=== PATIENT | male | born 1990 | race African-American/Black ===

== ENCOUNTER 2020-08-30 15:33 | Emergency (ER) | payer OTHER ==
[~2020-08-30] VITALS: Ht 175.3 cm; Wt 63.0 kg
[2020-08-30] MEDS ORDERED: OLANZAPINE 10 MG/VIAL IM ONE (16:15)
[2020-08-30] MEDS ORDERED: LORAZEPAM 2MG/ML CPJ IM ONE (16:15)
[2020-08-30 16:36] LABS: BASOPHILS % 0.1 % (0.0-2.0); HEMATOCRIT. 38.5 % (42.0-52.0); HEMOGLOBIN. 12.7 g/dL (14.0-18.0); LYMPHOCYTES % 25.3 % (20.0-50.0); MEAN CORPUSCULAR HEMOGLOBIN 27.2 pg (28.0-32.0); MEAN CORPUSCULAR VOLUME 82.2 fL (80.0-94.0); MEAN PLATELET VOLUME 9.2 fl (7.4-10.4); MONOCYTES % 7.3 % (2.0-8.0); NEUTROPHILS % 67.3 % (40.0-76.0); PLATELET 182 x1000/uL (130-400); RED BLOOD CELL COUNT 4.69 mill/uL (4.7-6.1); RED CELL DISTRIBUTION WIDTH 15.8 % (11.6-14.6)
[2020-08-30 16:42] LABS: CHLORIDE 101 mEq/L (98-107)
[2020-08-30 16:47] LABS: ETHANOL BLOOD < 10 mg/dL
[2020-08-30] MEDS ORDERED: POTASSIUM CHLORIDE 20MEQ TABLET SR PO ONE (17:30)
[2020-08-30 17:36] LABS: CLARITY URINE CLEAR (CLEAR); COLOR URINE YELLOW (YELLOW); KETONES URINE NEGATIVE (NEGATIVE); LEUKOCYTE ESTERASE URINE NEGATIVE (NEGATIVE); NITRITE URINE NEGATIVE (NEGATIVE); OCCULT BLOOD URINE NEGATIVE (NEGATIVE); PROTEIN URINE NEGATIVE (NEGATIVE); SPECIFIC GRAVITY URINE 1.008 (1.005-1.030); UROBILINOGEN URINE 0.2 E.U./dL (0.2-1.0)
[2020-08-30 18:00] LABS: *AMPHETAMINES SCREEN URINE PRESUMTIVE POSITIVE (NEGATIVE); *BARBITURATES SCREEN URINE NEGATIVE (NEGATIVE); *BENZODIAZEPINES SCREEN URINE NEGATIVE (NEGATIVE); *COCAINE SCREEN URINE PRESUMTIVE POSITIVE (NEGATIVE)
[2020-08-30 18:01] LABS: CANNABINOID URINE SCREEN PRESUMTIVE POSITIVE (NEGATIVE); METHADONE URINE SCREEN NEGATIVE (NEGATIVE); OPIATES URINE SCREEN NEGATIVE (NEGATIVE); PHENCYCLIDINE URINE SCREEN NEGATIVE (NEGATIVE)
[2020-08-31] VITALS: BP 142/87
== END 2020-08-31 00:46 | disposition home or self-care (01) ==
LOC: ER 15:33
DX: R46.2 Strange and inexplicable behavior (principal); I49.9 Cardiac arrhythmia, unspecified
CPT/HCPCS: 36415; 70450; 80053; 80305; 80307; 80320; 80329; 81003; 85025; 93005; 96372; 99285; J2060; J3490; Z7610; G0480

== ENCOUNTER 2021-03-06 20:47 | Emergency (ER) | payer OTHER ==
[~2021-03-06] VITALS: Ht 177.8 cm; Wt 68.0 kg
[2021-03-06] MEDS ORDERED: SODIUM CHLORIDE 0.9% 1,000 ML IV ONE (21:30)
[2021-03-06] MEDS ORDERED: LORAZEPAM 2MG/ML CPJ IV ONE (21:30)
[2021-03-06 21:49] LABS: BASOPHILS % 0.1 % (0.0-2.0); EOSINOPHILS % 0.5 % (0.0-5.0); HEMATOCRIT. 36.6 % (42.0-52.0); HEMOGLOBIN. 12.6 g/dL (14.0-18.0); LYMPHOCYTES % 25.6 % (20.0-50.0); MEAN CORPUSCULAR HEMOGLOBIN 29.3 pg (28.0-32.0); MEAN PLATELET VOLUME 9.8 fl (7.4-10.4); MONOCYTES % 8.2 % (2.0-8.0); NEUTROPHILS % 65.6 % (40.0-76.0); PLATELET 171 x1000/uL (130-400); RED BLOOD CELL COUNT 4.31 mill/uL (4.7-6.1); RED CELL DISTRIBUTION WIDTH 13.2 % (11.6-14.6)
[2021-03-06 21:52] LABS: CHLORIDE 105 mEq/L (98-107)
[2021-03-07 06:26] VITALS: BP 126/88
== END 2021-03-07 07:22 | disposition home or self-care (01) ==
LOC: ER 20:47
DX: F29 Unspecified psychosis not due to a substance or known physiological condition (principal); R00.0 Tachycardia, unspecified; B20 Human immunodeficiency virus [HIV] disease; T43.621A Poisoning by amphetamines, accidental (unintentional), initial encounter; Y92.9 Unspecified place or not applicable; Z88.0 Allergy status to penicillin
CPT/HCPCS: 36415; 71045; 80053; 83880; 84484; 85025; 93005; 96361; 96374; 99285; J2060; J7030; Z7610

== ENCOUNTER 2021-07-15 07:38 | Emergency (ER) | payer MEDICAID, OTHER ==
[~2021-07-15] VITALS: Ht 180.3 cm; Wt 78.0 kg
[2021-07-15 10:44] LABS: BASOPHILS % 0.2 % (0.0-2.0); EOSINOPHILS % 0.1 % (0.0-5.0); HEMOGLOBIN. 14.2 g/dL (14.0-18.0); LYMPHOCYTES % 14.8 % (20.0-50.0); MEAN CORPUSCULAR HEMOGLOBIN 29.5 pg (28.0-32.0); MEAN CORPUSCULAR VOLUME 87.4 fL (80.0-94.0); MEAN PLATELET VOLUME 10.1 fl (7.4-10.4); MONOCYTES % 8.4 % (2.0-8.0); NEUTROPHILS % 76.5 % (40.0-76.0); PLATELET 295 x1000/uL (130-400); RED BLOOD CELL COUNT 4.81 mill/uL (4.7-6.1); RED CELL DISTRIBUTION WIDTH 13.2 % (11.6-14.6)
[2021-07-15 10:51] LABS: CHLORIDE 107 mEq/L (98-107)
[2021-07-15 10:56] LABS: ETHANOL BLOOD < 10 mg/dL
[2021-07-15 15:58] LABS: CLARITY URINE CLOUDY (CLEAR); COLOR URINE YELLOW (YELLOW); KETONES URINE TRACE (NEGATIVE); LEUKOCYTE ESTERASE URINE NEGATIVE (NEGATIVE); NITRITE URINE NEGATIVE (NEGATIVE); OCCULT BLOOD URINE TRACE (NEGATIVE); PROTEIN URINE 2+ (NEGATIVE); SPECIFIC GRAVITY URINE 1.025 (1.005-1.030)
[2021-07-15 16:07] LABS: *AMPHETAMINES SCREEN URINE PRESUMTIVE POSITIVE (NEGATIVE); *BARBITURATES SCREEN URINE NEGATIVE (NEGATIVE); *BENZODIAZEPINES SCREEN URINE NEGATIVE (NEGATIVE); *COCAINE SCREEN URINE NEGATIVE (NEGATIVE); METHADONE URINE SCREEN NEGATIVE (NEGATIVE); OPIATES URINE SCREEN NEGATIVE (NEGATIVE)
[2021-07-15 16:08] LABS: CANNABINOID URINE SCREEN PRESUMTIVE POSITIVE (NEGATIVE); PHENCYCLIDINE URINE SCREEN NEGATIVE (NEGATIVE)
[2021-07-15] MEDS ORDERED: OLANZAPINE 5MG TABLET PO SCH (21:00)
[2021-07-16 04:00] VITALS: BP 136/78
== END 2021-07-16 05:10 | disposition home or self-care (01) ==
LOC: ER 07:38
DX: F15.129 Other stimulant abuse with intoxication, unspecified (principal); T40.995A Adverse effect of other psychodysleptics [hallucinogens], initial encounter; F29 Unspecified psychosis not due to a substance or known physiological condition; B20 Human immunodeficiency virus [HIV] disease; Y92.9 Unspecified place or not applicable
CPT/HCPCS: 36415; 80053; 80305; 80320; 81003; 85025; 99285; Z7610; G0480

== ENCOUNTER 2021-07-16 06:40 | Emergency (ER) | payer MEDICAID ==
[~2021-07-16] VITALS: Ht 172.7 cm; Wt 64.0 kg
[2021-07-16 06:51] VITALS: BP 140/83
[2021-07-16 11:34] LABS: BASOPHILS % 0.7 % (0.0-2.0); EOSINOPHILS % 2.3 % (0.0-5.0); HEMATOCRIT. 45.9 % (42.0-52.0); HEMOGLOBIN. 15.5 g/dL (14.0-18.0); LYMPHOCYTES % 31.8 % (20.0-50.0); MEAN CORPUSCULAR HEMOGLOBIN 29.6 pg (28.0-32.0); MEAN CORPUSCULAR VOLUME 87.7 fL (80.0-94.0); MEAN PLATELET VOLUME 10.3 fl (7.4-10.4); MONOCYTES % 8.9 % (2.0-8.0); NEUTROPHILS % 56.3 % (40.0-76.0); PLATELET 293 x1000/uL (130-400); RED BLOOD CELL COUNT 5.23 mill/uL (4.7-6.1); RED CELL DISTRIBUTION WIDTH 13.5 % (11.6-14.6)
[2021-07-16 11:35] LABS: CHLORIDE 104 mEq/L (98-107)
[2021-07-16 11:39] LABS: ETHANOL BLOOD < 10 mg/dL
[2021-07-16 12:15] LABS: CLARITY URINE CLEAR (CLEAR); COLOR URINE DARK YELLOW (YELLOW); KETONES URINE TRACE (NEGATIVE); LEUKOCYTE ESTERASE URINE TRACE (NEGATIVE); NITRITE URINE NEGATIVE (NEGATIVE); OCCULT BLOOD URINE NEGATIVE (NEGATIVE); PH URINE 5.5 (4.5-8.0); PROTEIN URINE 1+ (NEGATIVE); SPECIFIC GRAVITY URINE 1.034 (1.005-1.030); UROBILINOGEN URINE 0.2 E.U./dL (0.2-1.0)
[2021-07-16 12:48] LABS: *AMPHETAMINES SCREEN URINE PRESUMTIVE POSITIVE (NEGATIVE); *BARBITURATES SCREEN URINE NEGATIVE (NEGATIVE)
[2021-07-16 12:49] LABS: *BENZODIAZEPINES SCREEN URINE NEGATIVE (NEGATIVE); *COCAINE SCREEN URINE NEGATIVE (NEGATIVE); CANNABINOID URINE SCREEN PRESUMTIVE POSITIVE (NEGATIVE); METHADONE URINE SCREEN NEGATIVE (NEGATIVE); OPIATES URINE SCREEN NEGATIVE (NEGATIVE); PHENCYCLIDINE URINE SCREEN NEGATIVE (NEGATIVE)
== END 2021-07-16 12:04 | disposition left against medical advice (07) ==
LOC: ER 06:40
DX: R46.1 Bizarre personal appearance (principal); F29 Unspecified psychosis not due to a substance or known physiological condition; F19.10 Other psychoactive substance abuse, uncomplicated; B20 Human immunodeficiency virus [HIV] disease; Z88.0 Allergy status to penicillin
CPT/HCPCS: 36415; 80053; 80305; 80320; 81003; 85025; 87086; 99283; Z7610; G0480

== ENCOUNTER 2021-09-04 12:16 | Emergency (ER) | payer MEDICAID, OTHER ==
[~2021-09-04] VITALS: Ht 177.8 cm; Wt 80.0 kg
[2021-09-04 12:38] VITALS: BP 114/93
== END 2021-09-04 14:42 | disposition home or self-care (01) ==
LOC: ER 12:16
DX: F15.10 Other stimulant abuse, uncomplicated (principal); F16.129 Hallucinogen abuse with intoxication, unspecified; Z13.9 Encounter for screening, unspecified; Z88.0 Allergy status to penicillin
CPT/HCPCS: 99283

== ENCOUNTER 2021-09-04 14:26 | Emergency (ER) | payer OTHER ==
[~2021-09-04] VITALS: Ht 175.3 cm; Wt 73.0 kg
[2021-09-05 05:00] VITALS: BP 102/60
== END 2021-09-05 05:25 | disposition home or self-care (01) ==
LOC: ER 14:26
DX: F19.10 Other psychoactive substance abuse, uncomplicated (principal); Z59.00 Homelessness unspecified; I49.8 Other specified cardiac arrhythmias; B20 Human immunodeficiency virus [HIV] disease; Z88.0 Allergy status to penicillin
CPT/HCPCS: 93005; 99283

== ENCOUNTER 2023-06-12 23:09 | Emergency (ER) | payer MEDICAID, OTHER ==
[~2023-06-12] VITALS: Ht 172.7 cm; Wt 78.0 kg
[2023-06-12 23:11] VITALS: BP 146/77; PULSE 105; RESP 20; TEMP 98.6; O2SAT 99
[2023-06-12] MEDS ORDERED: LORAZEPAM 2MG/ML CPJ IM STA (23:12)
[2023-06-12] MEDS ORDERED: HALOPERIDOL LACTATE 5MG/ML VIAL IM STA (23:12)
[2023-06-12] MEDS ORDERED: DIPHENHYDRAMINE 50MG/ML VIAL IM STA (23:12)
[2023-06-12] MEDS ORDERED: LORAZEPAM 2MG/ML SYR IM NR (23:30)
== END 2023-06-13 03:00 | disposition home or self-care (01) ==
LOC: ER 23:09
DX: F15.10 Other stimulant abuse, uncomplicated (principal); R41.82 Altered mental status, unspecified; F20.9 Schizophrenia, unspecified
CPT/HCPCS: 96372; 99291; J1200; J1630; J2060; Z7610

== ENCOUNTER 2025-03-13 08:01 | Emergency (ER) | payer OTHER ==
[~2025-03-13] VITALS: Ht 172.7 cm; Wt 82.0 kg
[~2025-03-13 08:01] MED LIST: DIVA250T45 PO; RISP-28 PO
[2025-03-13 08:03] VITALS: O2SAT 100
[2025-03-13] MEDS: CEPHALEXIN 250MG CAPSULE PO STA (09:18)
[2025-03-13] MEDS: HYDROCODONE/ACETAMINOPHEN 5/325MG TABLET PO ONE (09:18)
[2025-03-13] MEDS: IBUPROFEN 400MG TABLET PO ONE (09:19)
[2025-03-13] MEDS: LIDOCAINE HCL 1% 20ML VIAL INFIL ONE (09:20)
[2025-03-13] MEDS: TETANUS, DIPHTHERIA, PERTUSSIS VAC/PF 0.5ML (>10YR OLD) IM ONE (09:24)
[2025-03-13] MEDS ORDERED: IBUP-2028 MT (15:18)
[2025-03-13] MEDS ORDERED: SULF1TAB48 MT (15:18)
[2025-03-13] MEDS ORDERED: CEPH500T MT (15:18)
[2025-03-13 15:50] VITALS: BP 158/70; PULSE 89; RESP 17; TEMP 36.7; O2SAT 100
== END 2025-03-13 15:52 | disposition home or self-care (01) ==
LOC: ER 08:05
DX: S61.216A Laceration without foreign body of right little finger without damage to nail, initial encounter (principal); Z79.899 Other long term (current) drug therapy; Z88.0 Allergy status to penicillin; Z88.1 Allergy status to other antibiotic agents; X58.XXXA Exposure to other specified factors, initial encounter; Y93.89 Activity, other specified; Y92.89 Other specified places as the place of occurrence of the external cause; Y99.8 Other external cause status
CPT/HCPCS: 73130; 73140; 73562; 90715; 12001; 90471; 96365; 99284; J0690; J2003; Z7610 ×2